=== PATIENT | male | born 1935 | race American Indian/Alaskan Native ===

== ENCOUNTER 2018-07-12 16:05 | Emergency (ER) | payer SELFPAY ==
--- NOTE | 2018-07-12 16:30 | Emergency Department Report ---
Blank Doc - Documentation Documentation: This is a 82-year-old male that presents with right axilla redness and pain. Stated he believes he was bitten by a spider. This initial assessment/diagnostic orders/clinical plan/treatment(s) is/are subject to change based on patient's health status, clinical progression and re- assessment by fellow clinical providers in the ED. Further treatment and workup at subsequent clinical providers discretion. Patient/guardians urged not to elope from the ED as their condition may be serious if not clinically assessed and managed. Initial orders include: 1- Patient sent to [facility] for further evaluation and treatment
[2018-07-12 16:31] VITALS: BP 165/80
== END 2018-07-12 18:40 | disposition left against medical advice (07) ==
LOC: ED 16:05
DX: S20.361A Insect bite (nonvenomous) of right front wall of thorax, initial encounter (principal); W57.XXXA Bitten or stung by nonvenomous insect and other nonvenomous arthropods, initial encounter; Y93.89 Activity, other specified; Y92.89 Other specified places as the place of occurrence of the external cause; Y99.8 Other external cause status; Z53.21 Procedure and treatment not carried out due to patient leaving prior to being seen by health care provider